=== PATIENT | male | born 1985 | race African-American/Black ===

== ENCOUNTER 2016-12-30 14:54 | Emergency (ER) | payer OTHER ==
[2016-12-30 15:12] VITALS: BP 133/69
--- NOTE | 2016-12-30 16:13 | RAD ---
INDICATION: Laceration evaluate for fracture and foreign body left forearm. TECHNIQUE: 2 views of the left forearm were obtained. FINDINGS: There is soft tissue swelling and a soft tissue defect present along the dorsal medial aspect of the distal forearm. There is an adjacent likely open incomplete nondisplaced fracture of the distal diaphysis of the ulna. No radiopaque foreign body is seen. IMPRESSION: SOFT TISSUE INJURY AND TRANSVERSE OPEN NONDISPLACED FRACTURE OF THE DISTAL ULNA.
--- NOTE | 2016-12-30 17:10 | ED ---
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 Denies any significant pain at this time. Does have FROM of entire left hand/fingers. Bleeding is well controlled, oozing. Does not feel lightheaded or dizzy at this time. No other injuries or complaints at this time. No medications. No PMHx. Unknown last tetanus. - History of Current Complaint Chief Complaint: EDExtremityUpper Stated Complaint: LT ARM LAC Time Seen by Provider: 12/30/16 16:19 Hx Obtained From: Patient Mechanism Of Injury: Penetrating Trauma - circular saw Onset/Duration: Started Hours Ago, Traumatic, Still Present Timing: Constant Severity Initially: Severe Severity Currently: Moderate Pain Location: Forearm - left Character: Aching Aggravating Factor(s): Nothing, Movement Alleviating Factor(s): Rest Associated Signs & Symptoms: Negative: Swelling, Redness, Bruising, Numbness/ Tingling Related History: Dominant Hand Right - Allergies/Home Medications Allergies/Adverse Reactions: Allergies Allergy/AdvReac Type Severity Reaction Status Date / Time No Known Allergies Allergy Verified 04/22/15 10:31 PMH/Surg Hx/FS Hx/Imm Hx Endocrine/Hematology History: Denies: Hx Anticoagulant Therapy, Hx Blood Disorders, Hx Diabetes Cardiovascular History: Denies: Hx Hypertension Respiratory History: Denies: Hx Asthma - Surgical History Surgery Procedure, Year, and Place: n/a - Immunization History Immunizations Up to Date: Yes Infectious Disease History: No Infectious Disease History: Denies: Traveled Outside the [place] in Last 30 Days - Family History Known Family History: Positive: None - Social History Alcohol Use: None Substance Use Type: Reports: None Smoking Status (MU): Never Smoked Tobacco Review of Systems Constitutional: Negative Cardiovascular: Negative Respiratory: Negative Positive: Arthralgia, Myalgia - left forearm Positive: Other - laceration left forearm Neurological: Negative All Other Systems Reviewed And Are Negative: Yes Physical Exam Triage Information Reviewed: Yes Vital Signs On Initial Exam: Initial Vitals Temp Pulse Resp BP Pulse Ox 99.4 F 75 14 133/69 95 12/30/16 15:10 12/30/16 15:10 12/30/16 15:10 12/30/16 15:10 12/30/16 15:10 Vital Signs Reviewed: Yes Appearance: Positive: Well-Appearing, No Pain Distress, Well-Nourished Skin: Positive: Warm, Skin Color Reflects Adequate Perfusion, Dry, Other - ~ 2 inch laceration to dorsal left forearm, mid shaft. full thickness through hypodermis down to bone. bleeding is minimal/oozing. rest of skin exam normal. no FB appreciated. Negative: Cold, Cyanosis @, Pale Head/Face: Positive: Normal Head/Face Inspection Eyes: Positive: Conjunctiva Clear ENT: Positive: Hearing grossly normal Neck: Positive: Supple, Nontender Respiratory/Lung Sounds: Positive: Clear to Auscultation, Breath Sounds Present. Negative: Rales, Rhonchi, Wheezes Cardiovascular: Positive: Normal, RRR, Pulses are Symmetrical in both Upper and Lower Extremities - 2+ radial b/l. Negative: Murmur, Rub Musculoskeletal: Positive: Normal, Strength/ROM Intact - FROM of all fingers, wrist left arm. full extension and flexion spontaneously without difficulty.. Negative: Interruption @, Edema Left, Edema Right Neurological: Positive: Normal, Sensory/Motor Intact - sensation intact and normal. CMS of left forearm intact, Alert, Oriented to Person Place, Time, NV Bundle Intact Distally Psychiatric: Positive: Affect/Mood Appropriate Procedures - Procedure Summary Procedure Summary: laceration was sutured by Dr Velez, Orthopedist. please see his procedure noted. approximately 10-15 stitches placed after thorough irrigation. Also was placed in a splint after repair of laceration. due to fractured bone from injury. Diagnostics - Vital Signs Vital Signs Temp Pulse Resp BP Pulse Ox 12/30/16 15:10 99.4 F 75 14 133/69 95 - Laboratory Lab Statement: Any lab studies that have been ordered have been reviewed, and results considered in the medical decision making process. - Radiology left forearm Xray Interpretation: Positive (See Comments) - SOFT TISSUE INJURY AND TRANSVERSE OPEN NONDISPLACED FRACTURE OF THE DISTAL ULNA. Radiology Interpretation Completed By: Radiologist Course/Dx - Course Course Of Treatment: patient did not want pain management at this time. laceration was sutured by Dr Velez, orthopedist. Also splinted for fractured ulna. given antibiotics and follow up with ortho in [address] Velez has procedure noted for laceration repair and splinting, please refer there. Patient is aware can not get splint wet, do not use or weight bear and ibuprofen for pain. Aware of worsening signs and symptoms to watch out for. Follow up pcp as well. - Diagnoses Differential Diagnosis/HQI/PQRI: Positive: Contusion, Fracture (Open), Fracture (Closed), Laceration, Strain, Sprain Provider Diagnoses: Open fracture of left forearm, Laceration of left forearm - Physician Notifications Discussed Care of Patient With: Dr Velez Time Discussed With Above Provider: 16:55 Instructed by Provider To: MD Will See In ED Discharge - Discharge Plan Condition: Stable Disposition: HOME Prescriptions: Cephalexin CAP* [Keflex CAP*] 500 mg PO QID #28 cap Patient Education Materials: Care For Your Stitches (ED), Laceration (ED) Referrals: Lina Wilson MD [Medical Doctor] - No Primary Care Phys,NOPCP [Primary Care Provider] - Additional Instructions: Take prescribed medication as directed to prevent infection. Do not miss a dose. Drink plenty of fluids. Keep clean and dry. Do not get wet or remove splint. Do not use arm. Rest, ice and elevate. Have stitches removed and follow up with Ortho in 7 days. Any worsening or new symptoms please seek medical attention promptly.
--- NOTE | 2016-12-30 22:16 | CONS ---
ORTHOPEDICS SURGERY CONSULTATION: DATE OF CONSULT: 12/30/16 CONSULTING SERVICE: Emergency Room. REASON FOR CONSULT: Left arm laceration. CHIEF COMPLAINT: Left arm pain. 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 This afternoon, he was using a circular saw and, unfortunately, his left arm got caught in this. He sustained a laceration and was brought into the emergency room. He denies any numbness or tingling. The pain is located in the left dorsal forearm. It is moderate and described as sharp. It is worse with attempted movement of the arm and better with rest. PAST MEDICAL HISTORY: Denies. PAST SURGICAL HISTORY: Denies. ALLERGIES: No known drug allergies. 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 He works full-time doing this. PHYSICAL EXAM: He is a well-appearing man, in no apparent distress. Examination of his left upper extremity reveals a 7 cm long laceration on the left dorsal ulnar forearm. There is no active bleeding from this. There are no other lacerations on the arm. He has full sensation to light touch throughout the entire hand. He is able to fully extend and flex all 5 fingers and has good motor function of the radial, median, and ulnar nerves. He has strong palpable radial pulse. In the laceration itself, there is no obvious contamination. IMAGING: Left forearm x-rays were obtained and independently interpreted and do show a small cortical break from the saw, but no extension of the fracture through the rest of the bone, just on the ulna. ASSESSMENT AND PLAN: A 31-year-old man, circular saw injury to the left upper extremity. While the laceration is impressive, he is thankfully neurovascularly intact. He is able to fully use all of his fingers. We discussed this with him. Additionally, he does have a fracture of the ulna. PROCEDURE: After verbal consent was contained, the wound was thoroughly irrigated with sterile saline. There were no obvious lacerations of any tendons. The wound was sutured closed with 4-0 chromic suture and an ulnar gutter splint then applied. He remained neurovascularly intact with a stable examination after the procedure. He tolerated this well and this was all performed under sterile conditions. He will be discharged from the emergency room with 1 week of antibiotics orally. He will be nonweightbearing in the left upper extremity and a splint. He is going to follow up with me in 1 week for a wound check. He was instructed to call my office or come into ER sooner should he have any increasing pain, concerning signs for infection which were reviewed with him. All of his questions were answered. [id number]/[facility] #: [id number] [facility]
== END 2016-12-30 18:22 | disposition home or self-care (01) ==
LOC: ED 14:54
DX: S52.602B Unspecified fracture of lower end of left ulna, initial encounter for open fracture type I or II (principal); W29.8XXA Contact with other powered hand tools and household machinery, initial encounter; Y92.9 Unspecified place or not applicable
CPT/HCPCS: 12001; 99282

== ENCOUNTER 2017-01-07 12:17 | Day surgery (SDC) | payer OTHER ==
[~2017-01-07 12:17] MED LIST: Bupivacaine 0.25% SDV* 30 ML ONE
[2017-01-07] MEDS ORDERED: ceFAZolin 2 GM PREMIX (*) 50 ML IVPB ONE (12:45)
[2017-01-07] MEDS ORDERED: Midazolam* 1 MG/ML 2 ML VIAL (2 MG) ONE (13:56)
[2017-01-07] MEDS ORDERED: Famotidine IV* 10 MG/ML 2 ML (20 mg) ONE (13:56)
[2017-01-07] MEDS ORDERED: Ketorolac INJ* 30 MG/ML 1 ML VIAL ONE (14:08)
[2017-01-07] MEDS ORDERED: Propofol* 10 MG/ML 20 ML BTL IV PUSH ONE (14:08)
[2017-01-07] MEDS ORDERED: Dexamethasone IV* 4 MG/ML 1 ML (4 MG) ONE (14:08)
[2017-01-07] MEDS ORDERED: Lidocaine 2% PF * 5 ML VIAL ONE (14:08)
[2017-01-07] MEDS ORDERED: fentaNYL* 50 MCG/ML 2 ML VIAL (100 MCG VIAL) ONE ×2 (14:18→15:12)
[2017-01-07] MEDS ORDERED: HYDROmorphone INJ* 1 MG/ML CARPUJECT SYRINGE IV PRN (14:58)
[2017-01-07] MEDS ORDERED: HYDROcodone/ACETAMIN 5-325 MG* 1 TAB PO PRN ×2 (14:58)
[2017-01-07] MEDS ORDERED: Acetaminophen TAB* 325 MG PO PRN (14:58)
[2017-01-07] MEDS ORDERED: fentaNYL* 50 MCG/ML 2 ML VIAL (100 MCG VIAL) IV PRN (14:58)
[2017-01-07] MEDS ORDERED: DiMENhydriNATE IV* 50 MG/ML VIAL IV PUSH PRN (14:58)
[2017-01-07] MEDS ORDERED: Ondansetron INJ* 2 MG/ML VIAL IV PRN (14:58)
[2017-01-07] MEDS ORDERED: Levalbuterol 0.63MG/3ML NEB* UNIT OF USE INH PRN (14:58)
[2017-01-07] MEDS ORDERED: PROCHLORPERAZINE INJ 5 MG/ML 2 ML VIAL IV PRN (14:58)
[2017-01-07] MEDS ORDERED: HYDROcodone/ACETAMIN 5-325 MG* 1 TAB ONE (15:59)
[2017-01-07 16:16] VITALS: BP 128/88
--- NOTE | 2017-01-09 00:32 | OP ---
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 An internet marketing assistant was needed for the entirety of the procedure to aid in position of the arm and retraction. ANESTHESIOLOGIST: Dr. Olivia. ANESTHESIA: General. PRE-OP DIAGNOSES: Left dorsal forearm penetrating wound due to a chop saw with open partial fracture of the left ulnar shaft and laceration of the extensor tendon to the small finger and the extensor carpi ulnaris tendon. POST-OP DIAGNOSES: Left dorsal forearm penetrating wound due to a chop saw with open partial fracture of the left ulnar shaft and laceration of the extensor tendon to the small finger and the extensor carpi ulnaris tendon. OPERATIVE PROCEDURE: 1. Exploration of penetrating wound left dorsal forearm. 2. Repair of left extensor digiti minimi tendon with transfer to the ring finger, the ring finger extensor digitorum communis tendon. 3. Repair of the extensor carpi ulnaris tendon. 4. Closure of traumatic wound measuring 8 cm. 5. Irrigation and debridement of left ulnar shaft open fracture including skin , subcutaneous tissue, muscle, and bone. INDICATIONS: Wisam injured himself at work when the chop saw came down on to the dorsal ulnar forearm. He went to the emergency room the day of the injury when this happened. It was washed and the skin was loosely approximated. He presented to my office a week later and we worked with Workers[employer] Compensation to get it approved. I talked to him about risks and benefits. He elected to proceed with surgery. ESTIMATED BLOOD LOSS: 5 mL. COMPLICATIONS: None. FINDINGS: Laceration of the EDM tendon at musculotendinous junction necessitating tendon transfer, laceration of the extensor carpi ulnaris that was still repairable. There was a partial fracture of the left ulnar shaft. DESCRIPTION OF PROCEDURE: Wisam was seen in the preoperative holding area. The correct side, site, and procedure were identified. We came back to the operating room where the arm was prepped and draped in the usual fashion. A time-out was performed. I began by exsanguinating the arm with the Esmarch and the tourniquet was inflated to 250 mmHg. I then removed remnants of the chromic gut sutures that were in place. Simple spreading of the tenotomy scissors. Reopened of the entirety of the wound. It fell open and bone was visible in the base of the wound. I then extended the traumatic margin proximally and distally in lazy-S type fashion. Full thickness flaps were raised off of the fascia and sewn back. The fascia was split proximally and distally with the tenotomy scissors. The tendons were explored. The entirety of the extensor digitorum communis tendons were intact. The extensor digiti minimi was completely lacerated and right of the musculotendinous junction, the extensor carpi ulnaris tendon was lacerated. The ulnar had a fracture through it, extended about half the width of the shaft to the bone. The remainder of the volar cortex was intact and the ulnar seemed stable. I began by crushing of the tendon edge on the extensor digiti minimi. This was then woven with the tendon cruz through the ring finger extensor digitorum communis tendon. The wrist was placed in 30-degrees of extension. The transverse tension was just about with the MP joint and just touch more height extension than the normal cascade of the ring finger. The tendon cruz was then secured with multiple 3-0 Ethibond sutures. I then checked the tension and the fingers were tenodesis stayed and just slightly more extension than the remainder of the digits. I liked this and so I then took 3-0 Ethibond suture and was able to with multiple whipstitches and [id number] stitches get the extensor carpi ulnaris tendon repaired as well. It was right at the musculotendinous junction, but I was able to grasp enough tendon proximally to get repaired a whole. Prior to repairing the 2 tendons, I had debrided the skin edges and the subcutaneous tissue in a fashion and irrigated and debrided out the bone. Once I had that all done, I went ahead and closed the wound, which measured 7 to 8 cm with some 3-0 nylon suture. The wound was then dressed with Xeroform, 4x4s, sterile Webril and a volar splint was applied with the wrist in 30-degrees of extension in the MP joints and about 30 degrees of flexion and the IP joint in extension. Tourniquet was deflated. He was then woken up and taken to the recovery room in stable condition. [id number]/[facility] #: [id number] [facility]
== END 2017-01-07 16:18 | disposition home or self-care (01) ==
LOC: OREAST 12:17
PROVIDERS: ATTEND Orthopaedic Surgery Hand Surgery
DX: S52.202B Unspecified fracture of shaft of left ulna, initial encounter for open fracture type I or II (principal); S56.522A Laceration of other extensor muscle, fascia and tendon at forearm level, left arm, initial encounter; S56.428A Laceration of extensor muscle, fascia and tendon of left little finger at forearm level, initial encounter; W31.2XXA Contact with powered woodworking and forming machines, initial encounter; Y92.9 Unspecified place or not applicable; F17.200 Nicotine dependence, unspecified, uncomplicated
CPT/HCPCS: J0690; J1100; J1885; J2250; J2704; J3010